=== PATIENT | male | born 1985 | race Caucasian/White ===

== ENCOUNTER 2020-12-23 14:40 | Emergency (ER) | payer SELFPAY ==
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
[2020-12-23 14:44] VITALS: BP 136/71; PULSE 79; RESP 16; TEMP 36.6; O2SAT 98
[2020-12-23 14:53] VITALS: BP 136/71; PULSE 79; RESP 16; TEMP 36.6; O2SAT 98
== END 2020-12-23 15:01 | disposition home or self-care (01) ==
PROVIDERS: Emergency Provider Nurse Practitioner Family
DX: L03.115 Cellulitis of right lower limb (principal)
CPT/HCPCS: 99213; G0463